=== PATIENT | male | born 1930 | race Caucasian/White ===

== ENCOUNTER 2017-02-06 06:48 | Day surgery (SDC) | payer MEDICARE, OTHER ==
[~2017-02-06] VITALS: Ht 176.5 cm; Wt 81.7 kg
--- NOTE | ~2017-02-06 | OR ---
ADMIT: 02/06/2017 RM/LOC: [facility] MR#: [id number] [address] [id number] [place] [address] Operative/Delivery Room Report SEX: M AGE: 86 : 1930 SURGERY DATE: 02/06/2017 SURGEON: Jay Souza MD PREOPERATIVE DIAGNOSES: Dysphagia with esophageal stricture. POSTOPERATIVE DIAGNOSIS: Dysphagia with esophageal stricture. PROCEDURE: Esophagogastroduodenoscopy with 19-mm balloon dilatation of the GE junction. ANESTHESIA: IV general. DESCRIPTION OF PROCEDURE: The patient was taken to the endoscopy suite and placed left side down on his hospital cart. A bite-block was placed, and IV sedation was established. The upper endoscope was advanced through the oropharynx into the esophagus without difficulty. The scope was pushed under visualization of the stomach. There was stricture at the distal esophagus without worrisome finding or malignant appearance. Air was used to insufflate the stomach. The pylorus was intubated. The first, second, and third portions of the duodenum were examined and appeared normal. The scope was withdrawn to the stomach. The antrum, body, and fundus appeared normal. The scope was withdrawn to the gastroesophageal junction where the stricture was. The balloon was advanced across this area and insufflated to 3 GER initially which was 18-mm diameter. This was then sequentially dilated up to 4.5 GER making it a 19-mm diameter. The balloon was held in place for 1 minute and then deflated. The balloon was withdrawn. There was only superficial trauma, but much wider patency of the stricture upon completion. No signs of perforation were present. The scope was withdrawn and air was suctioned. The patient tolerated the procedure well and transferred to the recovery area in stable condition. Jay Souza MD/ modl JOB #: [id number] CC: Jay Souza, Attending Physician FAMILY PHYSICIAN, Family Physician
== END 2017-02-06 10:10 | disposition home or self-care (01) ==
LOC: SSS 06:48
PROC: 0D738ZZ Dilation of Lower Esophagus, Via Natural or Artificial Opening Endoscopic (ICD-10-PCS; principal; 2017-02-06)
DX: K22.2 Esophageal obstruction (principal); R13.10 Dysphagia, unspecified; E78.5 Hyperlipidemia, unspecified; K21.9 Gastro-esophageal reflux disease without esophagitis; M10.9 Gout, unspecified; E11.9 Type 2 diabetes mellitus without complications; Z91.041 Radiographic dye allergy status; Z79.899 Other long term (current) drug therapy; Z90.49 Acquired absence of other specified parts of digestive tract